=== PATIENT | female | born 1980 | race Caucasian/White ===

== ENCOUNTER 2018-12-01 11:43 | Inpatient (IN) ==
[2018-12-01] MEDS ORDERED: Ibuprofen 600 MG TABLET PO ONE (12:09)
[2018-12-01 12:14] LABS: Eosinophils % 1.2 %
[2018-12-01 12:15] LABS: Basophils % 0.1 %; Eosinophils # 0.1 K/mcL (0.0-0.6); Hematocrit 17.8 % (35.3-44.9); Immature Granulocytes % 0.4 % (0-4); Lymphocytes % 10.9 %; Mean Corpuscular HGB Conc 25.3 g/dL (31.6-35.5); Mean Corpuscular Volume 59.1 fL (83.0-100.0); Monocytes # 0.6 K/mcL (0.0-1.3); Neutrophils # 7.2 K/mcL (1.6-8.9); Platelet Count 157 K/mcL (140-400); Red Blood Count 3.01 M/mcL (3.82-4.97); Red Cell Distribution Width 20.1 % (11.5-14.5); Segmented Neutrophils % 80.4 %; White Blood Count 8.9 K/mcL (4.3-11.1)
[2018-12-01 12:21] LABS: INR 1.2; Prothrombin Time 13.4 Seconds (9.4-12.1)
[2018-12-01 12:24] LABS: Activated Partial Thrombo Time 29.3 Seconds (26.0-36.0)
[2018-12-01 12:32] LABS: Albumin/Globulin Ratio 2.1 (1.1-2.2); Bilirubin,Direct 0.1 mg/dL (0.0-0.2); Bilirubin,Indirect 0.4 mg/dL (0.0-1.2); Bilirubin,Total 0.5 mg/dL (0.3-1.0); Globulin 1.9 g/dL (2.4-3.5); Total Protein 5.9 g/dL (6.4-8.9)
[2018-12-01 12:33] LABS: BUN/Creatinine Ratio 11 (6-26); Blood Urea Nitrogen 7 mg/dL (6-20); Calcium 8.8 mg/dL (8.6-10.3); Carbon Dioxide 24 mEq/L (23-29); Chloride 109 mEq/L (98-107); Glucose 103 mg/dL (70-105); Osmolality,Calculated 280 (280-300); Potassium 3.6 mEq/L (3.5-5.1); Sodium 136 mEq/L (136-145); eGFR For African Americans > 60 (> 60); eGFR For Non-African Americans > 60 (> 60)
[2018-12-01 12:34] LABS: Troponin I < 0.03 ng/mL (< 0.04)
[2018-12-01 12:38] LABS: Hemoglobin 4.5 g/dL (11.5-15.4)
[2018-12-01 12:48] LABS: Hypochromasia Present (Not Present); Microcytosis Present (Not Present)
[2018-12-01 12:49] LABS: Anisocytosis 2+ (Not Present)
[2018-12-01 12:50] LABS: Ovalocytes 1+ (Not Present); Platelet Estimate Normal (Normal); Tear Drop Cells 1+ (Not Present)
[2018-12-01 13:19] LABS: Basophils % 0.3 %; Eosinophils # 0.1 K/mcL (0.0-0.6); Eosinophils % 1.2 %; Hematocrit 17.9 % (35.3-44.9); Immature Granulocytes % 0.4 % (0-4); Lymphocytes # 1.3 K/mcL (0.6-4.6); Lymphocytes % 12.5 %; Mean Corpuscular HGB Conc 25.1 g/dL (31.6-35.5); Mean Corpuscular Hemoglobin 14.7 pg (28.0-33.3); Mean Corpuscular Volume 58.5 fL (83.0-100.0); Monocytes # 0.9 K/mcL (0.0-1.3); Monocytes % 8.3 %; Neutrophils # 7.9 K/mcL (1.6-8.9); Platelet Count 165 K/mcL (140-400); Red Blood Count 3.06 M/mcL (3.82-4.97); Red Cell Distribution Width 20.6 % (11.5-14.5); Segmented Neutrophils % 77.3 %; White Blood Count 10.2 K/mcL (4.3-11.1)
[2018-12-01] MEDS ORDERED: cefTRIAXone 1,000 MG in Water for inj. (sterile) 10 ML IVP ONE (13:29)
[2018-12-01] MEDS ORDERED: Azithromycin 500 MG in 0.9 % Sodium Chloride 250 ML IVPB ONE (13:29)
[2018-12-01 13:34] LABS: Hemoglobin 4.5 g/dL (11.5-15.4)
[2018-12-01 13:57] LABS: Anisocytosis 2+ (Not Present)
[2018-12-01 13:58] LABS: Hypochromasia Present (Not Present); Microcytosis Present (Not Present); Ovalocytes 1+ (Not Present); Platelet Estimate Normal (Normal); Tear Drop Cells 1+ (Not Present)
[2018-12-01] MEDS ORDERED: 0.9 % Sodium Chloride 250 ML ONE ×2 (15:14→19:29)
[2018-12-01] MEDS ORDERED: Naloxone 0.4 MG/ML INJ IVP PRN (15:47)
[2018-12-01 16:10] LABS: Lactate Dehydrogenase 111 Units/L (140-271)
[2018-12-01 16:13] LABS: Immature Reticulocyte % 25.9 % (11.0-38.0); Retculocyte # 0.05 M/mcL (0.05-0.10); Reticulocyte % 1.6 % (1.6-2.8)
[2018-12-01 16:33] LABS: Folate 7.8 ng/mL (3.0-16.0)
[2018-12-01] MEDS ORDERED: *HR* Nalbuphine 10 MG/ML AMPUL IV STA (16:34)
[2018-12-01 16:37] LABS: Procalcitonin 0.02 ng/mL (0.00-0.15)
[2018-12-01 17:22] LABS: % Iron Saturation 4 % (15-50); Iron 18 mcg/dL (50-170); Transferrin 361 mg/dL (203-362)
[2018-12-01 17:41] LABS: Ferritin < 8 ng/mL (10-120)
[2018-12-01] MEDS: Menthol 9.1 MG LOZENGE PO PRN (21:08)
[2018-12-01] MEDS: Acetaminophen 325 MG TABLET PO PRN (21:36)
[2018-12-02 00:02] LABS: Monocytes % 6.5 %
[2018-12-02 00:03] LABS: Basophils # 0.1 K/mcL (0.0-0.2); Basophils % 0.3 %; Eosinophils # 0.1 K/mcL (0.0-0.6); Eosinophils % 0.6 %; Hematocrit 30.3 % (35.3-44.9); Hemoglobin 8.2 g/dL (11.5-15.4); Immature Granulocytes % 0.5 % (0-4); Lymphocytes # 1.3 K/mcL (0.6-4.6); Lymphocytes % 6.2 %; Mean Corpuscular HGB Conc 27.1 g/dL (31.6-35.5); Mean Corpuscular Hemoglobin 17.7 pg (28.0-33.3); Mean Corpuscular Volume 65.6 fL (83.0-100.0); Monocytes # 1.3 K/mcL (0.0-1.3); Platelet Count 166 K/mcL (140-400); Red Blood Count 4.62 M/mcL (3.82-4.97); Red Cell Distribution Width 27.9 % (11.5-14.5); Segmented Neutrophils % 85.9 %; White Blood Count 20.2 K/mcL (4.3-11.1)
[2018-12-02 00:09] LABS: Neutrophils # 17.4 K/mcL (1.6-8.9)
[2018-12-02] MEDS ORDERED: Acetaminophen IV 500 MG/50 ML INFUS..BTL IVPB ONE (01:11)
[2018-12-02 01:16] LABS: Anisocytosis 2+ (Not Present); Hypochromasia Present (Not Present); Microcytosis Present (Not Present); Tear Drop Cells 1+ (Not Present)
[2018-12-02 01:17] LABS: Ovalocytes 1+ (Not Present); Platelet Estimate Normal (Normal)
[2018-12-02] MEDS: Melatonin 3 MG TABLET PO PRN ×2 (02:00→21:08)
[2018-12-02 05:02] LABS: Basophils % 0.1 %; Eosinophils # 0.1 K/mcL (0.0-0.6); Eosinophils % 0.6 %; Hematocrit 22.5 % (35.3-44.9); Hemoglobin 6.1 g/dL (11.5-15.4); Immature Granulocytes % 0.4 % (0-4); Lymphocytes # 1.3 K/mcL (0.6-4.6); Lymphocytes % 8.9 %; Mean Corpuscular HGB Conc 27.1 g/dL (31.6-35.5); Mean Corpuscular Hemoglobin 17.8 pg (28.0-33.3); Mean Corpuscular Volume 65.6 fL (83.0-100.0); Monocytes % 6.7 %; Neutrophils # 11.9 K/mcL (1.6-8.9); Platelet Count 150 K/mcL (140-400); Red Blood Count 3.43 M/mcL (3.82-4.97); Red Cell Distribution Width 26.8 % (11.5-14.5); Segmented Neutrophils % 83.3 %; White Blood Count 14.3 K/mcL (4.3-11.1)
[2018-12-02 05:07] LABS: INR 1.2; Prothrombin Time 13.9 Seconds (9.4-12.1)
[2018-12-02 05:19] LABS: BUN/Creatinine Ratio 16 (6-26); Blood Urea Nitrogen 9 mg/dL (6-20); Calcium 8.6 mg/dL (8.6-10.3); Carbon Dioxide 23 mEq/L (23-29); Chloride 107 mEq/L (98-107); Chol/HDL Ratio 2.3 (0-4.9); Cholesterol 105 mg/dL (< 200); Glucose 98 mg/dL (70-105); HDL Cholesterol 46 mg/dL (40-59); LDL Cholesterol,Calculated 52 mg/dL (0-99); Osmolality,Calculated 283 (280-300); Potassium 3.8 mEq/L (3.5-5.1); Sodium 137 mEq/L (136-145); Triglycerides 37 mg/dL (< 150); eGFR For African Americans > 60 (> 60); eGFR For Non-African Americans > 60 (> 60)
[2018-12-02 05:59] LABS: Hypochromasia Present (Not Present); Microcytosis Present (Not Present); Platelet Estimate Normal (Normal)
[2018-12-02] MEDS: FLUoxetine 20 MG CAPSULE PO SCH (07:14)
[2018-12-02] MEDS: Acetaminophen 325 MG TABLET PO PRN ×2 (07:14→21:08)
[2018-12-02] MEDS: *HR* Buprenorphine HCl 8 MG TAB.SUBL SL SCH (07:14)
[2018-12-02] MEDS ORDERED: 0.9 % Sodium Chloride 250 ML ONE (08:12)
[2018-12-02] MEDS: Ibuprofen 600 MG TABLET PO PRN (11:37)
[2018-12-02] MEDS ORDERED: Furosemide 20 MG/2 ML VIAL IVP ONE (12:00)
[2018-12-02 12:23] LABS: Hemoglobin 8.1 g/dL (11.5-15.4)
[2018-12-02] MEDS: Menthol 9.1 MG LOZENGE PO PRN (22:04)
[2018-12-02 22:20] LABS: Hematocrit 26.5 % (35.3-44.9); Hemoglobin 7.5 g/dL (11.5-15.4)
[2018-12-03 01:12] LABS: Hematocrit 24.1 % (35.3-44.9); Hemoglobin 6.8 g/dL (11.5-15.4)
[2018-12-03] MEDS: *HR* Buprenorphine HCl 8 MG TAB.SUBL SL SCH (08:43)
[2018-12-03] MEDS: FLUoxetine 20 MG CAPSULE PO SCH (08:43)
[2018-12-03] MEDS: Acetaminophen 325 MG TABLET PO PRN (08:52)
[2018-12-03] MEDS ORDERED: 0.9 % Sodium Chloride 250 ML ONE ×2 (11:02→12:40)
[2018-12-03] MEDS: Azithromycin 500 MG in 0.9 % Sodium Chloride 250 ML IVPB SCH (12:26)
[2018-12-03] MEDS: cefTRIAXone 1,000 MG in Water for inj. (sterile) 10 ML IVP SCH (12:27)
[2018-12-03] MEDS: Ibuprofen 600 MG TABLET PO PRN (15:44)
[2018-12-03 16:01] LABS: Hematocrit 27.6 % (35.3-44.9)
[2018-12-03 19:16] LABS: Bilirubin,Urine Negative (Negative); Blood,Urine Small (Negative); Clarity,Urine Clear (Clear); Color,Urine Dark Yellow (Yellow); Glucose,Urine (UA) Normal (Normal); Ketones,Urine Negative (Negative); Leukocyte Esterase,Urine Negative (Negative); Nitrite,Urine Negative (Negative); Protein,Urine Trace mg/dL (Neg-Trace); Specific Gravity,Urine 1.021 (1.010-1.025); Urobilinogen,Urine Normal (Normal)
[2018-12-03 19:20] LABS: Bacteria,Urine None Seen per hpf (None-Few); Hyaline Casts,Urine None Seen per lpf (None-Few); Squamous Epithelial Cell,Urine Many per lpf (None-Few); WBC,Urine 0-3 per hpf (0-3)
[2018-12-03 20:10] LABS: Hematocrit 27.3 % (35.3-44.9); Hemoglobin 7.8 g/dL (11.5-15.4)
[2018-12-04 03:45] LABS: Eosinophils % 1.1 %; Immature Granulocytes % 0.5 % (0-4); Mean Corpuscular Hemoglobin 19.5 pg (28.0-33.3)
[2018-12-04 03:47] LABS: Basophils % 0.2 %; Eosinophils # 0.1 K/mcL (0.0-0.6); Hematocrit 25.5 % (35.3-44.9); Hemoglobin 7.4 g/dL (11.5-15.4); Lymphocytes # 1.2 K/mcL (0.6-4.6); Lymphocytes % 10.2 %; Mean Corpuscular Volume 67.3 fL (83.0-100.0); Monocytes # 0.8 K/mcL (0.0-1.3); Monocytes % 6.5 %; Neutrophils # 9.8 K/mcL (1.6-8.9); Platelet Count 133 K/mcL (140-400); Red Blood Count 3.79 M/mcL (3.82-4.97); Red Cell Distribution Width 29.8 % (11.5-14.5); Segmented Neutrophils % 81.5 %
[2018-12-04 04:01] LABS: BUN/Creatinine Ratio 19 (6-26); Blood Urea Nitrogen 11 mg/dL (6-20); Calcium 8.3 mg/dL (8.6-10.3); Carbon Dioxide 25 mEq/L (23-29); Chloride 108 mEq/L (98-107); Glucose 147 mg/dL (70-105); Osmolality,Calculated 290 (280-300); Potassium 3.4 mEq/L (3.5-5.1); Sodium 139 mEq/L (136-145); eGFR For African Americans > 60 (> 60); eGFR For Non-African Americans > 60 (> 60)
[2018-12-04 06:35] LABS: Anisocytosis 1+ (Not Present); Hypochromasia Present (Not Present); Platelet Estimate Normal (Normal)
[2018-12-04] MEDS: *HR* Buprenorphine HCl 8 MG TAB.SUBL SL SCH (07:55)
[2018-12-04] MEDS: FLUoxetine 20 MG CAPSULE PO SCH (07:55)
[2018-12-04] MEDS: Acetaminophen 325 MG TABLET PO PRN (10:48)
[2018-12-04 11:30] LABS: Hematocrit 26.4 % (35.3-44.9); Hemoglobin 7.5 g/dL (11.5-15.4)
[2018-12-04] MEDS: cefTRIAXone 1,000 MG in Water for inj. (sterile) 10 ML IVP SCH (11:33)
[2018-12-04] MEDS: Azithromycin 500 MG in 0.9 % Sodium Chloride 250 ML IVPB SCH (11:37)
[2018-12-04 11:47] VITALS: BP 120/77
[2018-12-04] MEDS ORDERED: FLU Vac QV 19-20 (6Month+)/PF 0.5 ML SYRINGE IM ONE (12:39)
== END 2018-12-04 13:40 | disposition home or self-care (01) | DRG 811 ==
LOC: 3BNU 11:43 → EMEROOARM 11:43 → SUATTDRO 16:10 → 3BNU 17:07 → SUATTDRO 12-02 14:06
PROVIDERS: ADMIT Internal Medicine; ATTEND Family Medicine

== ENCOUNTER 2020-11-30 21:56 | Observation (INO) ==
[2020-11-30 22:44] LABS: Monocytes % 4.7 %
[2020-11-30 22:46] LABS: Basophils % 0.5 %; Eosinophils # 0.2 K/mcL (0.0-0.6); Eosinophils % 2.4 %; Hematocrit 20.6 % (35.3-44.9); Immature Granulocytes % 1.2 % (0-4); Lymphocytes % 24.3 %; Mean Corpuscular HGB Conc 25.7 g/dL (31.6-35.5); Mean Corpuscular Hemoglobin 15.5 pg (28.0-33.3); Mean Corpuscular Volume 60.2 fL (83.0-100.0); Monocytes # 0.4 K/mcL (0.0-1.3); Neutrophils # 5.6 K/mcL (1.6-8.9); Nucleated Red Blood Cells 0.2 /100 WBC (0); Platelet Count 280 K/mcL (140-400); Red Blood Count 3.42 M/mcL (3.82-4.97); Red Cell Distribution Width 20.8 % (11.5-14.5); Segmented Neutrophils % 66.9 %; White Blood Count 8.3 K/mcL (4.3-11.1)
[2020-11-30 22:47] LABS: INR 1.1; Prothrombin Time 12.7 Seconds (9.4-12.1)
[2020-11-30 23:03] LABS: BUN/Creatinine Ratio 13 (6-26); Blood Urea Nitrogen 9 mg/dL (6-20); Calcium 8.7 mg/dL (8.6-10.3); Carbon Dioxide 26 mEq/L (23-29); Chloride 103 mEq/L (98-107); Glucose 102 mg/dL (70-105); Osmolality,Calculated 281 (280-300); Potassium 3.7 mEq/L (3.5-5.1); Sodium 136 mEq/L (136-145); eGFR For African Americans > 60 (> 60); eGFR For Non-African Americans > 60 (> 60)
[2020-11-30 23:09] LABS: Hemoglobin 5.3 g/dL (11.5-15.4)
[2020-11-30 23:16] LABS: Anisocytosis 2+ (Not Present); Hypochromasia Present (Not Present); Microcytosis Present (Not Present); Platelet Estimate Normal (Normal)
[2020-11-30] MEDS ORDERED: 0.9 % Sodium Chloride 500 ML ONE (23:33)
[2020-11-30 23:34] LABS: Adenovirus Not Detected (Not Detect); Bordetella Pertussis Not Detected (Not Detect); Chlamydophila pneumoniae Not Detected (Not Detect); Coronavirus 229E Not Detected (Not Detect); Coronavirus HKU1 Not Detected (Not Detect); Coronavirus NL63 Not Detected (Not Detect); Coronavirus OC43 Not Detected (Not Detect); Human Metapneumovirus Not Detected (Not Detect); Human Rhinovirus/Enterovirus Not Detected (Not Detect); Influenza A Subtype 2009 H1 Not Detected (Not Detect); Influenza B Not Detected (Not Detect); Mycoplasma pneumoniae Not Detected (Not Detect); Parainfluenza Virus 1 Not Detected (Not Detect); Parainfluenza Virus 2 Not Detected (Not Detect); Parainfluenza Virus 3 Not Detected (Not Detect); Parainfluenza Virus 4 Not Detected (Not Detect); Respiratory Syncytial Virus Not Detected (Not Detect); SARS-CoV-2 Not Detected (Not Detect)
[2020-11-30 23:34] LABS: Bilirubin,Urine Negative (Negative); Blood,Urine Negative (Negative); Clarity,Urine Clear (Clear); Color,Urine Yellow (Yellow); Glucose,Urine (UA) Normal (Normal); Ketones,Urine Negative (Negative); Leukocyte Esterase,Urine Negative (Negative); Nitrite,Urine Negative (Negative); Protein,Urine Negative (Neg-Trace); Specific Gravity,Urine 1.021 (1.010-1.025)
[2020-12-01] MEDS ORDERED: cefTRIAXone 1,000 MG in 0.9 % Sodium Chloride Mini Bag 100 ML IVPB ONE (00:26)
[2020-12-01] MEDS ORDERED: Azithromycin 500 MG in 0.9 % Sodium Chloride 250 ML IVPB ONE (00:26)
[2020-12-01] MEDS ORDERED: Naloxone 0.4 MG/ML INJ IVP PRN (00:44)
[2020-12-01] MEDS ORDERED: Melatonin 3 MG TABLET PO PRN (00:44)
[2020-12-01 05:48] LABS: Hematocrit 21.9 % (35.3-44.9); Immature Platelets 7.3 % (1.1-6.1); Mean Corpuscular HGB Conc 26.9 g/dL (31.6-35.5); Mean Corpuscular Hemoglobin 17.3 pg (28.0-33.3); Platelet Count 249 K/mcL (140-400); Red Blood Count 3.42 M/mcL (3.82-4.97); Red Cell Distribution Width 24.5 % (11.5-14.5); White Blood Count 8.5 K/mcL (4.3-11.1)
[2020-12-01 05:53] LABS: Hemoglobin 5.9 g/dL (11.5-15.4)
[2020-12-01 06:10] LABS: Magnesium 1.9 mg/dL (1.6-2.6); Phosphorous 3.9 mg/dL (2.7-4.5)
[2020-12-01 06:27] LABS: Folate 4.3 ng/mL (3.0-16.0)
[2020-12-01] MEDS ORDERED: 0.9 % Sodium Chloride 250 ML ONE (06:37)
[2020-12-01] MEDS ORDERED: Ringers Solution, Lactated 1,000 ML IVC SCH (06:45)
[2020-12-01] MEDS: Acetaminophen 325 MG TABLET PO PRN (09:30)
[2020-12-01] MEDS ORDERED: FLUoxetine 20 MG CAPSULE PO ONE (11:19)
[2020-12-01] MEDS ORDERED: cefTRIAXone 1,000 MG in Water for inj. (sterile) 10 ML IVP SCH (12:00)
[2020-12-01 12:11] LABS: Hemoglobin 7.4 g/dL (11.5-15.4)
[2020-12-01] MEDS: *HR* Buprenorphine HCl 8 MG TAB.SUBL SL SCH (12:17)
[2020-12-01] MEDS ORDERED: Folic Acid 1 MG in 0.9 % Sodium Chloride 50 ML IVPB STA (13:55)
[2020-12-01] MEDS ORDERED: Cyanocobalamin (B-12) 1,000 MCG/ML VIAL SQ ONE (13:55)
[2020-12-02] MEDS: Acetaminophen 325 MG TABLET PO PRN ×2 (06:00→11:20)
[2020-12-02 06:23] VITALS: BP 117/75; PULSE 75; TEMP 98.6; O2SAT 96
[2020-12-02 06:58] LABS: Alanine Aminotransferase 4 Units/L (7-52); Albumin 3.3 g/dL (3.5-5.7); Albumin/Globulin Ratio 1.7 (1.1-2.2); Alkaline Phosphatase 56 Units/L (34-104); Aspartate Amino Transferase 8 Units/L (13-39); BUN/Creatinine Ratio 9 (6-26); Bilirubin,Indirect 0.4 mg/dL (0.0-1.0); Bilirubin,Total 0.4 mg/dL (0.3-1.0); Blood Urea Nitrogen 5 mg/dL (6-20); Calcium 8.5 mg/dL (8.6-10.3); Carbon Dioxide 25 mEq/L (23-29); Chloride 106 mEq/L (98-107); Globulin 1.9 g/dL (2.4-3.5); Glucose 95 mg/dL (70-105); Osmolality,Calculated 281 (280-300); Potassium 4.2 mEq/L (3.5-5.1); Sodium 137 mEq/L (136-145); Total Protein 5.2 g/dL (6.4-8.9); eGFR For African Americans > 60 (> 60); eGFR For Non-African Americans > 60 (> 60)
[2020-12-02] MEDS ORDERED: Iron Sucrose Complex 250 MG in 0.9 % Sodium Chloride 250 ML IVPB ONE (07:36)
[2020-12-02 08:03] LABS: Hemoglobin 7.5 g/dL (11.5-15.4); Red Blood Count 4.18 M/mcL (3.82-4.97); White Blood Count 8.6 K/mcL (4.3-11.1)
[2020-12-02 08:04] LABS: Hematocrit 27.8 % (35.3-44.9); Mean Corpuscular Hemoglobin 17.9 pg (28.0-33.3); Mean Corpuscular Volume 66.5 fL (83.0-100.0); Platelet Count 311 K/mcL (140-400)
[2020-12-02 08:05] LABS: Lymphocytes # 1.7 K/mcL (0.6-4.6); Lymphocytes % 19.2 %; Monocytes # 0.5 K/mcL (0.0-1.3); Monocytes % 5.2 %; Neutrophils # 6.1 K/mcL (1.6-8.9); Segmented Neutrophils % 71.3 %
[2020-12-02 08:06] LABS: Nucleated Red Blood Cells 0.3 /100 WBC (0)
[2020-12-02 08:07] LABS: Basophils # 0.1 K/mcL (0.0-0.2); Basophils % 0.6 %; Eosinophils # 0.2 K/mcL (0.0-0.6); Eosinophils % 2.4 %; Immature Granulocytes % 1.3 % (0-4)
[2020-12-02 08:08] LABS: Red Cell Distribution Width 25.1 % (11.5-14.5)
[2020-12-02 08:11] LABS: Anisocytosis 1+ (Not Present); Hypochromasia Present (Not Present); Microcytosis Present (Not Present); Platelet Estimate Normal (Normal)
[2020-12-02] MEDS: *HR* Buprenorphine HCl 8 MG TAB.SUBL SL SCH (08:50)
[2020-12-02] MEDS ORDERED: levoFLOXacin 750 MG TABLET PO SCH (09:00)
[2020-12-02] MEDS ORDERED: FLUoxetine 20 MG CAPSULE PO SCH (09:00)
[2020-12-02 12:13] LABS: Large Platelets Present (Not Present)
== END 2020-12-02 12:26 | disposition home or self-care (01) ==
LOC: 3ANU 21:56 → EMEROOARM 21:56 → SUATTDRO 12-01 01:21 → 3ANU 12-01 01:42
PROVIDERS: ADMIT Student in an Organized Health Care Education/Training Program; ATTEND Pharmacist